=== PATIENT | female | born 1975 | race African-American/Black ===

== ENCOUNTER 2020-06-08 09:29 | Emergency (ER) | payer BC, OTHER ==
[~2020-06-08] VITALS: Ht 172.7 cm; Wt 108.9 kg
[2020-06-08] MEDS ORDERED: METFORMIN HCL500 M3 PO (09:45)
[2020-06-08] MEDS ORDERED: HYDROCHLOROTH12.5 M1 PO (09:46)
[2020-06-08] MEDS ORDERED: TRULICITY0.75 MG/0. (09:46)
[2020-06-08 10:01] LABS: HEMATOCRIT 38.2 % (37.0-47.0); HEMOGLOBIN 12.6 gm/dL (12.0-15.0); NUCLEATED RBCS 0 /100WBC
[2020-06-08 10:04] LABS: MCH 29.2 pg (26.0-34.0); MCV 88.2 fL (80.0-100.0); PLATELET COUNT* 223 thou/uL (150-400); RBC 4.33 mil/uL (4.20-5.00); RDW-CV 13.5 % (10.5-14.5); WBC 8.1 thou/uL (4.0-11.0)
[2020-06-08 10:22] LABS: URINE BILIRUBIN NEGATIVE (Negative); URINE BLOOD 3+ (Negative); URINE CLARITY CLEAR; URINE COLOR YELLOW; URINE GLUCOSE-RANDOM NEGATIVE (Negative); URINE KETONES NEGATIVE (Negative); URINE LEUKOCYTES-REFLEX NEGATIVE (Negative); URINE NITRITE-REFLEX NEGATIVE (Negative); URINE PROTEIN NEGATIVE (Negative); URINE SPECIFIC GRAVITY >= 1.030 (1.005-1.030); URINE UROBILINOGEN 0.2 E.U./dl (0.2-1.0)
[2020-06-08 10:33] LABS: ABSOLUTE EOSINOPHILS 0.2 thou/uL (0.0-0.7); ABSOLUTE LYMPHOCYTES 1.7 thou/uL (0.8-5.3); ABSOLUTE MONOCYTES 0.5 thou/uL (0.0-1.2); ABSOLUTE NEUTROPHILS 5.7 thou/uL (1.6-8.1); PLATELET ESTIMATE ADEQUATE
[2020-06-08 10:34] LABS: ANISOCYTOSIS 1+; POIKILOCYTOSIS 1+
[2020-06-08 10:36] LABS: BACTERIA-REFLEX 1-9 Few /HPF (None Seen); CRYSTALS None Seen /LPF (None Seen); HYALINE CASTS 0-3 Few /LPF (None Seen); MUCUS >6 Heavy strn/LPF (None Seen); SQUAMOUS 4-10 Moderate /LPF (0-3); URINE RBC 3-10 Few /HPF (0-2); URINE WBC-REFLEX 0-5 Rare /HPF (0-5)
[2020-06-08 10:57] LABS: CALCIUM 8.8 mg/dL (8.5-10.1); CREATININE 0.9 mg/dL (0.6-1.3); POTASSIUM 4.1 mmol/L (3.5-5.1)
[2020-06-08 11:01] LABS: ALBUMIN 3.7 g/dL (3.4-5.0); TOTAL BILIRUBIN 0.3 mg/dL (<0.1-1.0)
[2020-06-08] MEDS ORDERED: ZOFRAN ODT4 MG DISSOLVE (11:43)
[2020-06-08] MEDS ORDERED: HYDROCODON-ACE1 EAC7 PO (11:43)
[2020-06-08] MEDS ORDERED: IBUPROFEN 800800 M1 PO (11:43)
[2020-06-08] MEDS ORDERED: FLAGYL500 M1 PO (11:51)
[2020-06-08 12:19] VITALS: BP 124/63
--- NOTE | 2020-06-08 16:03 | EKG ---
[place] [address] ELECTROCARDIOGRAM REPORT Name: MARIA E PINEDAI Lelia Room: [facility]#: [id number] Admission: 06/08/20 Attend Phys: Discharge: 06/08/20 Date of : 71 Date of Service: 06/08/20 0955 Report #: [id number] THIS REPORT FOR: //name// [facility] ED Test Date: 2020-06-08 Test Time: 09:55:51 Pat Name: VEE PINEDA Department: Room: Gender: Statistics Teacher: [facility] : 1975 Requested By: Neptali Strickland Order Number: [id number] MD: Williams Holm Measurements Intervals Ralph Rate: 76 P: 60 MO: 118 QRS: -13 QRSD: 107 T: -3 QT: 387 QTc: 436 Interpretive Statements Sinus rhythm Ventricular premature complex Borderline T abnormalities, inferior leads No previous ECG available for comparison Electronically Signed On 06-08-2020 16:03:25 CDT by Williams Holm [email or web address] <ELECTRONICALLY SIGNED> By: Williams Holm MD, [facility] 06/08/20 1603 [id number] 0955 Williams Holm MD, [facility] /EPI
== END 2020-06-08 12:21 | disposition home or self-care (01) ==
LOC: M.ERS 09:29
PROVIDERS: Emergency Medicine Emergency Medical Services
DX: D28.1 Benign neoplasm of vagina (principal); N93.8 Other specified abnormal uterine and vaginal bleeding; E11.9 Type 2 diabetes mellitus without complications; Z98.51 Tubal ligation status; Z98.890 Other specified postprocedural states; Z79.899 Other long term (current) drug therapy

== ENCOUNTER 2021-02-25 01:20 | Emergency (ER) | payer BC, OTHER ==
[~2021-02-25] VITALS: Ht 175.3 cm; Wt 97.5 kg
[~2021-02-25 01:20] MED LIST: FLAGYL500 M1 PO; HYDROCHLOROTH12.5 M1 PO; HYDROCODON-ACE1 EAC7 PO; IBUPROFEN 800800 M1 PO; METFORMIN HCL500 M3 PO; TRULICITY0.75 MG/0.; ZOFRAN ODT4 MG DISSOLVE
[2021-02-25 01:46] LABS: URINE BILIRUBIN NEGATIVE (Negative); URINE BLOOD NEGATIVE (Negative); URINE CLARITY CLEAR; URINE COLOR YELLOW; URINE GLUCOSE-RANDOM 3+ (Negative); URINE KETONES NEGATIVE (Negative); URINE LEUKOCYTES-REFLEX NEGATIVE (Negative); URINE NITRITE-REFLEX NEGATIVE (Negative); URINE PROTEIN NEGATIVE (Negative); URINE UROBILINOGEN 0.2 E.U./dl (0.2-1.0)
[2021-02-25] MEDS ORDERED: METRONIDAZOLE500 M4 PO (02:44)
[2021-02-25 02:56] VITALS: BP 120/78
== END 2021-02-25 02:56 | disposition home or self-care (01) ==
LOC: M.ERS 01:20
PROVIDERS: Personal Emergency Response Attendant
DX: N76.0 Acute vaginitis (principal); E11.9 Type 2 diabetes mellitus without complications; Z20.2 Contact with and (suspected) exposure to infections with a predominantly sexual mode of transmission; Z98.51 Tubal ligation status; Z79.899 Other long term (current) drug therapy